=== PATIENT | male | born 1995 | race Caucasian/White ===

== ENCOUNTER 2016-08-31 10:49 | Emergency (ER) | payer SELFPAY ==
[~2016-08-31] VITALS: Ht 182.9 cm; Wt 95.3 kg
[2016-08-31 10:59] VITALS: BP 137/77
[2016-08-31] MEDS ORDERED: AMOXICILLIN500 MG PO (11:03)
--- NOTE | 2016-08-31 11:09 | NUR ---
PATIENT AMBULATED TO BED 7 AT THIS TIME.
--- NOTE | 2016-08-31 11:15 | NUR ---
20M BIB SELF C/O RT NECK PAIN X LAST SUNDAY; PT STATES MAY BE R/T TATTOO TO RT NECK PT HAD DONE 8 MONTHS AGO; SWELLING NOTED TO SITE AT THIS TIME; PT DENIES TRAUMA OR INJURY TO SITE; PT C/O NAUSEA, BUT DENIES V/D AT THIS TIME; ABDOMEN SOFT, NON-TENDER, ACTIVE BOWEL SOUNDS X 4 QUADRANTS; PT A&OX4, PERRLA, BL LUNG SOUNDS CLEAR, RR EVEN/UNLABORED, SKIN IS WARM/DRY/INTACT AT THIS TIME; PT RESTING IN BED W/ HOB ELEVATED AND IN LOWEST POSITION; POSITIONED FOR COMFORT; ER MD MADE AWARE OF STATUS. WILL CONTINUE TO MONITOR.
[2016-08-31] MEDS ORDERED: CLINDAMYCIN 900 MG in DEXTROSE 5% 100 ML IV ONE (11:20)
--- NOTE | 2016-08-31 12:22 | NUR ---
PT TAKEN TO CT VIA W/C ACCOMPANIED BY [facility] AT THIS TIME.
--- NOTE | 2016-08-31 12:38 | NUR ---
PT RETURNED FROM CT VIA W/C ACCOMPANIED BY [employer] AT THIS TIME.
[2016-08-31] MEDS ORDERED: CLINDAMYCIN 900 MG/6 ML VIAL IV ONE (12:50)
[2016-08-31] MEDS ORDERED: MORPHINE SULFATE 4 MG/ML SYR IVP ONE (13:20)
--- NOTE | 2016-08-31 13:44 | NUR ---
Patient appears to be resting comfortably in bed. Vital Signs within normal limits. Respirations even and unlabored. NO ACUTE DISTRESS NOTED AT THIS TIME; WILL CONTINUE TO MONITOR.
--- NOTE | 2016-08-31 13:48 | NUR ---
REPORT GIVEN TO AG MONTEIRO AT [facility] ([place]) AT THIS TIME.
[2016-08-31 14:13] VITALS: BP 139/86
--- NOTE | 2016-08-31 14:13 | NUR ---
Patient to be transferred to [facility] [place]. Is being transferred due to HIGHER LEVEL OF CARE. Receiving facility has accepting physician and available space. ER physician has signed transfer form. Patient or responsible democrat has agreed to transfer and signed form. Patient belongings inventoried and will be sent with patient. Copy of nursing notes, lab reports, EKG, Physicians Orders and X-rays to be sent with patient. Report called to Re WATTS at receiving facility. [facility] service has been called for transfer. ER MD DR. RODGERS NOTIFIED OF PT'S TEMP 101.6; PT BEING TRANSFERRED TO [facility] [place] VIA GURNEY ACCOMPANIED BY [facility] AT THIS TIME.
== END 2016-08-31 14:13 | disposition short-term general hospital (02) ==
LOC: MED 10:49
DX: R22.1 Localized swelling, mass and lump, neck (principal); D72.825 Bandemia; M54.2 Cervicalgia
CPT/HCPCS: 36415; 70491; 80048; 85025; 96365; 96375; 99285; J2270; J3490; Q9967